=== PATIENT | female | born 1980 | race Caucasian/White ===

== ENCOUNTER 2019-12-24 02:19 | Inpatient (IN) | payer SELFPAY ==
[2019-12-24] MEDS ORDERED: LACTATED RINGERS 1,000 ML ONE ×2 (02:39→02:49)
[2019-12-24] MEDS ORDERED: BUTORPHANOL 2 MG/1 ML INJ IV PRN (02:44)
[2019-12-24] MEDS ORDERED: TERBUTALINE 1 MG/1 ML INJ SUB-Q PRN (02:44)
[2019-12-24] MEDS ORDERED: fentaNYL 100 MCG/2 ML INJ IV PRN (02:44)
[2019-12-24] MEDS ORDERED: PROMETHAZINE 25 MG RECT SUPP PR PRN (02:44)
[2019-12-24] MEDS ORDERED: ONDANSETRON 4 MG/2 ML INJ IV PRN ×3 (02:44→04:39)
[2019-12-24] MEDS ORDERED: TERBUTALINE 1 MG/1 ML INJ IVP PRN (02:44)
[2019-12-24] MEDS ORDERED: NALOXONE 0.4 MG/1 ML INJ IV PRN ×3 (02:44→04:39)
[2019-12-24] MEDS ORDERED: ePHEDrine SULFATE 50 MG/1 ML INJ IV PRN (02:44)
[2019-12-24] MEDS ORDERED: OXYTOCIN 20 UNIT/1000ML DRIP 20,000 MILLIUNITS/1,000 ML BAG IV ONE (02:49)
[2019-12-24] MEDS ORDERED: FAMOTIDINE 20 MG/2 ML INJ IV ONE (02:50)
[2019-12-24] MEDS ORDERED: METOCLOPRAMIDE 10 MG/2 ML INJ ONE (02:50)
[2019-12-24] MEDS ORDERED: BICITRA ORAL LIQD 30ML ONE (02:51)
[2019-12-24] MEDS ORDERED: KETAMINE/STERILE WATER 50 MG/ML SYRINGE ONE ×2 (02:55→03:53)
[2019-12-24] MEDS ORDERED: PROPOFOL 200 MG/20 ML VIAL IV ONE (02:55)
[2019-12-24] MEDS ORDERED: ONDANSETRON 4 MG/2 ML INJ ONE (02:55)
[2019-12-24] MEDS ORDERED: dexAMETHasone 20 MG/5 ML VIAL ONE (02:55)
[2019-12-24] MEDS ORDERED: SUCCINYLCHOLINE CHLORIDE 200 MG/10 ML INJ MDV ONE (02:55)
[2019-12-24] MEDS ORDERED: LACTATED RINGERS 1,000 ML IV SCH (03:00)
[2019-12-24] MEDS ORDERED: OXYTOCIN 20 UNIT/1000ML DRIP 20 UNITS/1,000 ML BAG IV SCH ×2 (03:00→05:00)
[2019-12-24 03:10] LABS: Hematocrit 36.1 % (30.3-42.9); Hemoglobin 12.3 gm/dl (10.1-14.3); Mean Corpuscular HGB Conc 34 % (30-34); Mean Corpuscular Volume 90 fl (79-97); Platelet Count 324 K/mm3 (140-440); Red Blood Count 4.02 M/mm3 (3.65-5.03); Red Cell Distribution Width 13.1 % (13.2-15.2)
[2019-12-24] MEDS ORDERED: ceFAZolin/STERILE WATER 2 GM/20 ML SYRINGE IV ONE (03:10)
--- NOTE | 2019-12-24 03:10 | History and Physical Report ---
History of Present Illness Date of examination: 12/24/19 Date of admission: 12/24/19 02:37 Chief complaint: "foot hanging out of the vagina". 28wks gestation. History of present illness: Report of PPROM 2 days ago, foot of fetus was visible at the introitus on arriv al. Past History Past Medical History: no pertinent history - Obstetrical History Expected Date of Delivery: 03/16/20 Actual Gestation: 28 Week(s) 1 Day(s) : 3 Medications and Allergies Allergies Allergy/AdvReac Type Severity Reaction Status Date / Time No Known Allergies Allergy Unverified 12/24/19 02:43 Home Medications Medication Instructions Recorded Confirmed Last Taken Type HYDROcodone/APAP 5-325 [[place] 1 - 2 each PO Q4HR PRN #30 tablet 12/24/19 Unknown Rx 5/325] Active Meds: Active Medications Butorphanol Tartrate (Stadol) 1 mg IV Q2H PRN PRN Reason: Pain, Moderate (4-6) Ephedrine Sulfate (Ephedrine Sulfate) 10 mg IV Q2M PRN PRN Reason: Hypotension Fentanyl (Sublimaze) 100 mcg IV Q2H PRN PRN Reason: Labor Pain Oxytocin/Sodium Chloride (Pitocin/Ns 20 Unit/1000ml Drip) 20 units in 1,000 mls @ 125 mls/hr IV DIRECT ABDELRAHMAN Lactated Ringer's (Lactated Ringers) 1,000 mls @ 125 mls/hr IV DIRECT ABDELRAHMAN Penicillin G Potassium 5 mil. (units/ Sodium Chloride) 50 mls @ 100 mls/hr IV ONCE ONE; Protocol Stop: 12/24/19 03:13 Lidocaine (Xylocaine 2%) 20 ml INFILTRATI ONCE ONE Stop: 12/24/19 02:45 Naloxone HCl (Naloxone) 0.1 mg IV Q2MIN PRN PRN Reason: Res Rate </= 8 or 02 SAT < 92% Ondansetron HCl (Zofran) 4 mg IV Q8H PRN PRN Reason: Nausea And Vomiting Promethazine HCl (Phenergan) 25 mg ND Q6H PRN PRN Reason: N/V if unable to take po Terbutaline Sulfate (Brethine) 0.25 mg SUB-Q ONCE PRN PRN Reason: Hyperstimulation/Hypertonicity Terbutaline Sulfate (Brethine) 0.25 mg IVP ONCE PRN PRN Reason: Hyperstimulation/Hypertonicity Review of Systems All systems: negative - Vital Signs Vital signs: Vital Signs Temp Resp 98.2 F 14 12/24/19 02:55 12/24/19 02:55 Temp Pulse Resp BP Pulse Ox 98.2 F 14 12/24/19 02:55 12/24/19 02:55 - Physical Exam Lungs: Positive: Normal air movement Abdomen: Positive: soft, distention. Negative: tenderness, guarding Cervix: Positive: other (Vag exam was done in the OR. Cervix was 4cm dilated with a foot at the introitus.) - Obstetrical FHR: auscultation normal Results Result Diagrams: 12/24/19 02:45 All other labs normal. Assessment and Plan - Patient Problems (1) History of premature rupture of membranes (PPROM) Current Visit: Yes Status: Acute (2) with 28 completed weeks gestation Current Visit: Yes Status: Acute (3) Breech presentation Current Visit: Yes Status: Acute Plan to address problem: For delivery.
[2019-12-24] MEDS ORDERED: WATER FOR IRRIG STERILE 1,500 ML BOTTLE IR ONE (03:20)
[2019-12-24] MEDS ORDERED: SODIUM CHLORIDE 0.9% IRR 1,500 ML BOTTLE IR ONE (03:20)
[2019-12-24] MEDS ORDERED: ROCURONIUM 50 MG/5 ML INJ IV ONE (03:41)
[2019-12-24] MEDS ORDERED: LIDOCAINE (2%) 20 MG/1 ML VIAL 20 ML MDV INFILTRATI ONE (03:44)
[2019-12-24] MEDS ORDERED: HYDROmorphone 1 MG/1 ML INJ ONE ×2 (03:54→04:14)
[2019-12-24] MEDS ORDERED: PENICILLIN G POTASSIUM 5 MIL.UNITS in SODIUM CHLORIDE 0.9% 50 ML IV ONE (04:00)
[2019-12-24] MEDS ORDERED: ACETAMINOPHEN 325 MG TAB PO PRN (04:24)
[2019-12-24] MEDS ORDERED: WITCH HAZEL/ GLYCERIN PAD TP PRN (04:24)
[2019-12-24] MEDS ORDERED: LANOLIN/ZINC/DIMETHICONE (LANSINOH) 7 GM TP PRN (04:24)
[2019-12-24] MEDS ORDERED: MORPHINE 4 MG/1 ML INJ IV PRN (04:24)
--- NOTE | 2019-12-24 04:37 | Anesthesia Consultation ---
Anesthesia Consult and Med Hx Date of service: 12/24/19 - Airway Anesthetic Teeth Evaluation: Good ROM Head & Neck: Adequate Mental/Hyoid Distance: Adequate Mallampati Class: Class II Intubation Access Assessment: Good - Pulmonary Exam CTA: Yes - Cardiac Exam Cardiac Exam: RRR - Pre-Operative Health Status ASA Pre-Surgery Classification: ASA3 Proposed Anesthetic Plan: General - Pulmonary Hx Smoking: No Hx Asthma: No Hx Respiratory Symptoms: No SOB: No COPD: No Home Oxygen Therapy: No Hx Pneumonia: No Hx Sleep Apnea: No - Cardiovascular System Hx Hypertension: No Hx Coronary Artery Disease: No Hx Heart Attack/AMI: No Hx Angina: No Hx Percutaneous Transluminal Coronary Angioplasty (PTCA): No Hx Cardia Arrhythmia: No Hx Pacemaker: No Hx Internal Defibrillator: No Hx Valvular Heart Disease: No Hx Heart Murmur: No Hx Peripheral Vascular Disease: No - Central Nervous System Hx Neuromuscular Disorder: No Hx Seizures: No CVA: No Hx Back Pain: No Hx Psychiatric Problems: No - Gastrointestinal Hx Ulcer: No Hx Gastroesophageal Reflux Disease: No - Endocrine Hx Renal Disease: No Hx End Stage Renal Disease: No Hx Cirrhosis: No Hx Liver Disease: No Hx Insulin Dependent Diabetes: No Hx Non-Insulin Dependent Diabetes: No Hx Thyroid Disease: No Hx Hypothyroidism: No Hx Hyperthyroidism: No - Hematic Hx Anemia: No Hx Sickle Cell Disease: No - Other Systems Hx Alcohol Use: No Hx Substance Use: No Hx Cancer: No Hx Obesity: No
--- NOTE | 2019-12-24 04:37 | Anesthesia Day of Surgery ---
Anesthesia Day of Surgery - Day of Surgery Patient Examined: Yes Patient H&P Reviewed: Yes Patient is NPO: Yes Beta Blockers: No Cardiac Clearance: No Pulmonary Clearance: No Amrit's Test: N/A
--- NOTE | 2019-12-24 04:38 | Post Anesthesia Evaluation ---
- Post Anesthesia Evaluation Patient Participated: Yes Airway Patent: Yes Stable Respiratory Function: Yes Nausea/Vomiting: No Temp > 96.8F: Yes Pain Manageable: Yes Adequeate Hydration: Yes Anesthesia Complications: No Block Receding Appropriately: Not Applicable Patient on Ventilator: No
[2019-12-24] MEDS ORDERED: BUPIVACAINE/PF (0.5%) 5 MG/1 ML 30 ML VIAL INFILTRATI ONE (04:47)
--- NOTE | 2019-12-24 04:48 | Operative Report ---
Operative Report Operative Report: Date of surgery: 12/24/2019 Preoperative diagnoses: PPROM, 28 weeks gestation, footling breech in the vagina. Postoperative diagnoses: The same. Uterine fibroid, peritoneal adhesions. Operation: Lower segment transverse delivery Surgeon:Julieta Gomez MD Durability Engineer: MYRTLE Luke Anesthesia: Gen. anesthesia Estimated blood loss: 600 mL Complications: None Findings: There was a live baby girl with a footling breech retrieved from the vagina. The lower uterine segment was undeveloped and very muscular making the extraction of the head from the fundus very difficult. Both ovaries and fallopian tubes were grossly normal. There was a golf ball sized uterine fibroi ds, sessile on the anterior aspect of the uterus. The scores were 0/5/9. There was an adherence of the inferior aspect of the greater omentum onto the ball of fibroids previously described. Procedure in detail: The patient was taken to the operating room and given a spinal block. Patient was placed in the straight supine position and a Ferraro catheter was inserted. The patient was prepped in the abdomen. The drapes were placed. A timeout was done. With the go ahead from the marketing content coordinator, a Pfannenstiel incision was made. This incision was carried across the subcutaneous layer to the fascia which was also divided transversely. The recti abdominis muscle flaps were stripped from the fascia using a combination of blunt and sharp dissections. The muscles were in the midline to gain access to the anterior parietal peritoneum which was divided after excluding any underlying viscera. The access to the peritoneal cavity was then widened by manual stretching. The bladder blade was applied. The utero vesicle peritoneal flap was divided transversely allowing the bladder to be displaced caudally. The uterine incision was placed in the lower segment transversely. The uterine incision was carried to the decidual layer. The uterine incision was extended on both sides using the bandage scissors. There was no evidence of amniotic fluid after the uterine cavity was entered. The foot, left foot, was recovered from the vagina through the 4 cm dilated cervix and brought out through the incision. The right foot was retrieved from the midsection of the uterine cavity and also was brought out through the incision. Gentle traction on the ankles delivered and the baby to the waist line. A wet towel was used to wrap the waist of the baby allowing traction to deliver the trunk of the baby to the shoulder blades. The Lovset maneuver was used to deliver the arms. The head of the baby had been trapped within the very muscular uterine cavity. At times at making a T incision failed because the scissors could not cut the thick muscularis. Martir efforts were used to stretch the hysterectomy and continuing fundal pressure delivered and the head of the baby. The airways were bulb suctioned beginning with the mouth. The umbilical cord was double clamped and divided. The baby was carefully transferred to the pediatric team. The placenta was manually removed from the uterine cavity. The uterine cavity was explored and was empty of any placental remnants. The uterine incision was repaired in 2 layers with #1 Vicryl. The surgical line on the uterus was hemostatic. The peritoneal adhesions described on the findings was divided using the Bovie. Hemostasis again was excellent. Blood and clots were cleared from the peritoneal cavity. The anterior parietal peritoneum was repaired with #1 Vicryl. The fascia was repaired with #1 Vicryl. The subcutaneous layer was made hemostatic using the Bovie before the skin was closed subcuticularly with 4-0 Vicryl. There were no complications. The estimated blood loss was 600 mL. All sponges and instrument counts were correct. Patient was safely transferred to the recovery room.
[2019-12-24] MEDS: KETOROLAC 30 MG/1 ML INJ IV PRN ×3 (04:55→18:36)
[2019-12-24] MEDS: HYDROmorphone 1 MG/1 ML INJ IV PRN ×3 (04:55→05:25)
[2019-12-24] MEDS: FERROUS SULFATE 325 MG TAB PO SCH (10:17)
[2019-12-24] MEDS: PRENATAL VIT27-FE FUMARATE-FOLIC ACID VIT TAB PO SCH (10:17)
[2019-12-24] MEDS ORDERED: FLEET ENEMA PR PRN (12:21)
[2019-12-24] MEDS ORDERED: SODIUM CHLORIDE 0.9% 1000 ML 1,000 ML IV SCH (12:30)
[2019-12-24] MEDS: HYDROcodone/ACETAMINOPHEN 5-325 MG TAB PO PRN ×2 (15:02→21:47)
[2019-12-24] MEDS: ceFAZolin/NS 1 GM/50 ML 1 GM/50 ML BAG IV SCH ×2 (15:03→22:53)
[2019-12-24] MEDS ORDERED: KETOROLAC 30 MG/1 ML INJ ONE (15:30)
[2019-12-24 16:43] LABS: Hematocrit 30.5 % (30.3-42.9); Hemoglobin 10.5 gm/dl (10.1-14.3)
[2019-12-24] MEDS ORDERED: MAGNESIUM HYDROXIDE (MOM) ORAL LIQD UDC PO PRN (18:27)
[2019-12-25] MEDS: KETOROLAC 30 MG/1 ML INJ IV PRN ×2 (00:04→08:47)
[2019-12-25] MEDS: HYDROcodone/ACETAMINOPHEN 5-325 MG TAB PO PRN ×3 (06:35→19:11)
[2019-12-25] MEDS: PRENATAL VIT27-FE FUMARATE-FOLIC ACID VIT TAB PO SCH (08:50)
[2019-12-25] MEDS: FERROUS SULFATE 325 MG TAB PO SCH (08:50)
[2019-12-25] MEDS: IBUPROFEN 800 MG TAB PO PRN ×2 (15:41→21:44)
--- NOTE | 2019-12-25 18:32 | Progress Note ---
Assessment and Plan - Patient Problems (1) History of premature rupture of membranes (PPROM) Current Visit: Yes Status: Acute (2) with 28 completed weeks gestation Current Visit: Yes Status: Acute (3) Breech presentation Current Visit: Yes Status: Acute (4) Postoperative state Current Visit: Yes Status: Acute Plan to address problem: Status post Day 1. Plan: current mgt plan adequate and will continue it. Subjective - Subjective Date of service: 12/25/19 Principal diagnosis: Status post Day 1. Interval history: Report of PPROM 2 days ago, foot of fetus was visible at the introitus on arrival. Patient reports: appetite normal, voiding normally, pain well controlled, ambulating normally [place]: doing well, in NICU Objective - Vital Signs Latest vital signs: Vital Signs Temp Pulse Resp BP BP Pulse Ox 12/25/19 16:10 98.4 F 106 H 20 115/70 12/25/19 09:04 97.9 F 102 H 20 121/57 12/24/19 23:51 98.5 F 100 H 18 111/59 94 12/24/19 18:36 20 Intake and Output 12/25/19 12/25/19 12/25/19 07:59 15:59 23:59 Intake Total 240 360 Output Total 400 Balance -400 240 360 Intake: Oral 240 360 Output: Urine 400 Void 400 Other: Total, Intake Amount 120 360 Total, Output Amount 400 # Voids Void 1 1 1 - Exam Lungs: Present: Normal air movement Abdomen: Present: normal appearance, soft, tenderness, normal bowel sounds. Absent: distention Uterus: Present: normal Extremities: Present: normal Incision: Present: normal, dry, intact. Absent: erythematous, suppurative
[2019-12-26] MEDS: FERROUS SULFATE 325 MG TAB PO SCH (09:40)
[2019-12-26] MEDS: HYDROcodone/ACETAMINOPHEN 5-325 MG TAB PO PRN ×2 (09:40→17:00)
[2019-12-26] MEDS: IBUPROFEN 800 MG TAB PO PRN ×2 (12:00→21:12)
--- NOTE | 2019-12-26 13:26 | Progress Note ---
Assessment and Plan - Patient Problems (1) S/P primary low transverse Current Visit: Yes Status: Acute Plan to address problem: POD 2 - no flatus or bowel movement reported by patient Continue routine postop orders Will continue clear liquid diet until flatus/bowel movement to be switched to a regular diet Encouraged ambulation. Abdominal binder ordered Anticipate discharge in 24 hours (2) delivery Current Visit: Yes Status: Acute Subjective - Subjective Date of service: 12/26/19 Principal diagnosis: POD #2; s/p Primary LTCS Interval history: see H&P, Operative Report and PP/LABOR RELATIONS TEACHER Progress Note Patient reports: appetite normal, voiding normally, pain well controlled, ambulating normally, no dizzy ambulation, no flatus, no bowel movement : in NICU Objective - Vital Signs Latest vital signs: Vital Signs Temp Pulse Resp BP BP Pulse Ox 12/26/19 07:51 98.0 F 95 H 18 123/74 94 12/26/19 00:20 97.8 F 71 20 106/54 95 12/25/19 22:44 18 12/25/19 21:44 18 12/25/19 20:11 18 12/25/19 16:10 98.4 F 106 H 20 115/70 Intake and Output 12/25/19 12/26/19 12/26/19 23:59 07:59 15:59 Intake Total 600 360 Balance 600 360 Intake: Oral 600 120 Intake, Free Water 240 Other: Total, Intake Amount 240 120 # Voids Void 1 1 - Exam Cardiovascular: Present: Regular rate, Normal S1 Lungs: Present: Clear to auscultation, Normal air movement Abdomen: Present: normal appearance, soft Vulva: both: normal Uterus: Present: normal, firm, fundal height below umbilicus Extremities: Present: normal Incision: Present: normal, dry, intact Comments: small lochia
[2019-12-26] MEDS: DOCUSATE SODIUM 100 MG CAP PO SCH ×2 (17:00→21:10)
[2019-12-27] MEDS: DOCUSATE SODIUM 100 MG CAP PO SCH (10:35)
[2019-12-27] MEDS: FERROUS SULFATE 325 MG TAB PO SCH (10:35)
[2019-12-27] MEDS: PRENATAL VIT27-FE FUMARATE-FOLIC ACID VIT TAB PO SCH (10:35)
[2019-12-27] MEDS: HYDROcodone/ACETAMINOPHEN 5-325 MG TAB PO PRN ×3 (10:35→15:37)
--- NOTE | 2019-12-27 11:29 | Discharge Summary ---
Providers - Providers Date of Admission: 12/24/19 02:37 Date of discharge: 12/27/19 Attending physician: TRACE GARCIA MD Primary care physician: TRACE GARCIA MD Hospitalization Reason for admission: active labor, IUP - Delivery: Procedure: section Episiotomy: none Laceration: none Incision: other (Steri-strips in place, small amount of serous drainage noted from center of incision. No odor or swelling noted in area. No signs of infections noted.) Other procedures: none complications: none Discharge diagnosis: other (Anemia), delivery [place] baby: female (currently in NICU) Hospital course: See admission H&P; OB operative note and PP progress notes Condition at discharge: Stable Disposition: TO HOME OR SELFCARE - Discharge Diagnoses (1) S/P primary low transverse Status: Acute (2) Anemia Status: Acute Qualifiers: Anemia type: other cause Other causes of anemia: acute posthemorrhagic Qualified Code(s): D62 - Acute posthemorrhagic anemia Plan - Discharge Medications Prescriptions: Ferrous Sulfate [Feosol 325 MG tab] 325 mg PO QDAY 30 Days #30 tablet HYDROcodone/APAP 5-325 [[place] 5/325] 1 - 2 each PO Q4HR PRN #30 tablet PRN Reason: Pain - Provider Discharge Summary Activity: routine, no sex for 6 weeks, no heavy lifting 4 weeks, no strenuous exercise Diet: other (Iron rich diet) Instructions: routine Additional instructions: [] Smoking cessation referral if applicable(refer to patient education folder for contact #) [] Refer to [facility] Booklet Call your doctor immediately for: * Fever > 100.5 * Heavy vaginal bleeding ( >1 pad per hour) * Severe persistent headache * Shortness of breath * Reddened, hot, painful area to leg or breast * Drainage or odor from incision. * Keep incision clean and dry at all times and follow doctor's instructions regarding bathing/showering * Continue daily oral iron supplementation as directed with OJ - Follow up plan Follow up: TRACE GARCIA MD [Primary Care Provider] - 7 Days
[2019-12-27] MEDS: IBUPROFEN 800 MG TAB PO PRN (14:16)
[2019-12-27 18:33] VITALS: BP 129/76
== END 2019-12-27 19:20 | disposition home or self-care (01) | DRG 786 ==
LOC: TRG 02:19 → LD 02:37 → OBSVTOIN 02:37 → APU 04:17 → OB 07:25
PROVIDERS: ADMIT Obstetrics & Gynecology; ATTEND Obstetrics & Gynecology
PROC: 10D00Z1 Extraction of Products of Conception, Low, Open Approach (ICD-10-PCS; principal; 2019-12-24)
DX: O34.13 Maternal care for benign tumor of corpus uteri, third trimester (principal); O60.14X0 Preterm labor third trimester with preterm delivery third trimester, not applicable or unspecified; D62 Acute posthemorrhagic anemia; O32.1XX0 Maternal care for breech presentation, not applicable or unspecified; Z3A.28 28 weeks gestation of pregnancy; Z37.0 Single live birth; O90.81 Anemia of the puerperium
CPT/HCPCS: 36415; 85014; 85018; 85027; 86592; 86706; 86762; 86850; 86900; 86901; 87806; 88307; G0378; J0330; J0690; J1100; J1170; J1885; J2270; J2405; J2540; J2590; J2704; J2765; J7030; J7120